=== PATIENT | female | born 1965 | race Caucasian/White ===

== ENCOUNTER 2020-09-22 10:25 | Outpatient (CLI) | payer BC, SELFPAY ==
--- NOTE | ~2020-09-22 | XR_ITS ---
XR hip BI 2V w AP pelvis DATE: 09/22/2020 11:29 INDICATION: Hip pain TECHNIQUE: AP pelvis. AP and lateral views of each hip. COMPARISON: 01/10/2016 bilateral hips FINDINGS: No pelvic fracture or bone destruction. The pubic symphysis and sacroiliac joints appear in tact. No fracture, dislocation, avascular necrosis or bone destruction of either hip. Hip joint spaces are symmetric and well preserved. IMPRESSION: No significant abnormality Reviewed, dictated and finalized at location A. RMATICIST IMPRESSION: No significant abnormality
--- NOTE | ~2020-09-22 | US_ITS ---
EXAMINATION: US transvaginal DATE: 09/22/2020 11:00 INDICATION: Thickened endometrial complex. TECHNIQUE: Multiple transvaginal sonographic images of the pelvis were obtained. COMPARISON: Ultrasound 06/09/2019 FINDINGS: The uterus measures 8.2 x 4.3 x 7.0 cm. There is a 3.1 cm isoechoic intramural fibroid. There is no f ree fluid in the pelvis. The endometrial complex measures 4 mm in thickness. There is trace fluid in the endometrial cavity. The ovaries are not visualized. IMPRESSION: 1. Normal endometrial complex. 2. Uterine fibroid. Reviewed, dictated and finalized at location B. TER ASSEMBLER
== END 2020-09-22 10:26 ==
PROVIDERS: PCP Family Medicine; Referring Provider Physician Assistant; Visit Provider Family Medicine
DX: R93.89 Abnormal findings on diagnostic imaging of other specified body structures (principal); M25.559 Pain in unspecified hip; M54.9 Dorsalgia, unspecified; G89.29 Other chronic pain; D25.9 Leiomyoma of uterus, unspecified
CPT/HCPCS: 73521; 76830

== ENCOUNTER → 2020-10-10 09:20 | Outpatient (CLI) | payer BC, SELFPAY ==
--- NOTE | ~2020-10-10 | MR_ITS ---
EXAMINATION: MR cervical spine wo con EXAM DATE: 10/10/2020 10:45 INDICATION: M54.9 - Dorsalgia, unspecified dorsalgia . TECHNIQUE: Multi-sequential, multiplanar MR images of the cervical spine were obtained without contra st. Axial T2, axial T2 MERGE sequence. Sagittal T1, T2, T2 fat saturation images also obtained. Com parison is made to prior examination from 11/28/2018. FINDINGS: There is moderate disc disease at C5-6, mild to moderate at C6-7. Mild disc disease at C4- 5 and 3-4. Mild chronic loss of the C5 and C6 vertebral body heights. The spinal cord signal intensit y and intrinsic morphology is normal. Cervicomedullary junction is normal in appearance. Paraspinal s oft tissue is unremarkable. Level by level evaluation: C2-C3: Disc does not extend beyond the endplate margin. Uncovertebral joint arthropathy: None. Facet joint arthropathy: Mild bilateral. Neural foraminal stenosis: No stenosis. Central canal stenosis: No stenosis. C3-C4: There is a minimal diffuse disc bulge. Uncovertebral joint arthropathy: Mild bilateral. Facet joint arthropathy: Mild to moderate left, mild right. Neural foraminal stenosis: No stenosis. Central canal stenosis: Minimal. C4-C5: There is a minimal diffuse disc bulge. Uncovertebral joint arthropathy: Mild bilateral. Facet joint arthropathy: Mild bilateral. Neural foraminal stenosis: Mild to moderate left. Central canal stenosis: Minimal. C5-C6: There is a mild diffuse disc bulge asymmetric to the right. Uncovertebral joint arthropathy: Moderate to severe right, mild to moderate left. Facet joint arthropathy: Moderate bilateral. Neural foraminal stenosis: Moderate to severe right, mild left. Central canal stenosis: Mild. C6-C7: There is a mild diffuse disc bulge. Uncovertebral joint arthropathy: Moderate to severe right, moderate left. Facet joint arthropathy: Moderate bilateral. Neural foraminal stenosis: Moderate to severe right, moderate left. Central canal stenosis: Mild. C7-T1: Disc does not extend beyond the endplate margin. Uncovertebral joint arthropathy: None. Facet joint arthropathy: Mild bilateral. Neural foraminal stenosis: No stenosis. Central canal stenosis: No stenosis. IMPRESSION: 1. Midcervical predominant neural foraminal stenosis. Reviewed, dictated and finalized at location B. L APPLIANCE ASSEMBLY SUPERVISOR
--- NOTE | ~2020-10-10 | MR_ITS ---
EXAMINATION: MR thoracic spine wo con EXAM DATE: 10/10/2020 11:00 INDICATION: M54.9 - Dorsalgia, unspecified dorsalgia. TECHNIQUE: Multi-sequential, multiplanar MR images of the thoracic spine were obtained without contra st. Sagittal T1, T2, T2 fat saturation, axial T2 weighted images reviewed. There is no prior study for comparison. FINDINGS: There is mild to moderate diffuse mid and lower thoracic loss of disc heights with small Sc hmorl's nodes at the endplates, small disc bulges and protrusions, but causing no more than mild cent ral canal or neural foraminal stenosis. There are no suspicious marrow signal abnormalities. The vert ebral bodies are aligned in the AP dimension. The spinal cord signal intensity and intrinsic morpholo gy is normal. Paraspinal soft tissue is unremarkable. There is mild to moderate thoracic facet arth ropathy. IMPRESSION: Mild to moderate thoracic spondylosis without significant stenosis. No acute findings. Reviewed, dictated and finalized at location B. SED OR BLOWN GLASS WORKER IMPRESSION: Mild to moderate thoracic spondylosis without significant stenosis . No acute findings.
--- NOTE | ~2020-10-10 | MR_ITS ---
EXAMINATION: MR lumbar spine wo [facility] EXAM DATE: 10/10/2020 10:58 INDICATION: M54.9 - Dorsalgia, unspecified dorsalgia . TECHNIQUE: Multi-sequential, multiplanar MR images of the lumbar spine were obtained without contrast . Sagittal T1, T2, T2 fat saturation images. Axial T2 weighted images. There is no prior study for comparison. FINDINGS: There is mild to moderate disc disease at T11-12 and T12-L1, mild from L3 through L5 and mo derate at L5-S1 with 3 mm retrolisthesis. There are no suspicious marrow signal abnormalities. The co nus medullaris terminates at the L1/2 level and has normal signal intensity and morphology. Paraspin al soft tissue is unremarkable. Level by level evaluation: T12-L1: There is a mild to moderate diffuse disc bulge. Facet arthropathy: Mild to moderate. Neural foraminal stenosis: No stenosis. Central canal stenosis: Mild. L1-L2: Disc does not extend beyond the endplate margin. Facet arthropathy: Mild to moderate. Neural foraminal stenosis: No stenosis. Central canal stenosis: No stenosis. L2-L3: There is a mild diffuse disc bulge. Facet arthropathy: Moderate. Neural foraminal stenosis: No stenosis. Central canal stenosis: Mild. L3-L4: There is a mild to moderate diffuse disc bulge. Facet arthropathy: Moderate. Neural foraminal stenosis: Mild to moderate left, mild right. Central canal stenosis: Mild. L4-L5: There is a mild to moderate diffuse disc bulge. Facet arthropathy: Mild to moderate. Neural foraminal stenosis: Mild to moderate bilateral. Central canal stenosis: Mild. L5-S1: There is a mild diffuse disc bulge. Facet arthropathy: Mild. Neural foraminal stenosis: Moderate bilateral. Central canal stenosis: Mild. IMPRESSION: Moderate spondylosis L5-S1, less at other lumbar levels. Reviewed, dictated and finalized at location B. TING PULLER
== END ==
PROVIDERS: PCP Family Medicine; Visit Provider Family Medicine
DX: M47.897 Other spondylosis, lumbosacral region (principal); M47.894 Other spondylosis, thoracic region
CPT/HCPCS: 72141; 72146; 72148

== ENCOUNTER 2021-01-13 14:33 | Outpatient (CLI) | payer BC, SELFPAY ==
--- NOTE | ~2021-01-13 | CT_ITS ---
EXAMINATION: CT abdomen pelvis wo con DATE: 01/13/2021 14:59 INDICATION: Right lower quadrant pain TECHNIQUE: Computed tomography (CT) of the abdomen and pelvis was performed without intravenous contr ast. The dose-length product was 232.73 mGy-cm. Automated exposure control and iterative reconstructi on technique were employed. COMPARISON: CT dated 08/07/2012. FINDINGS: Heart size normal. No pleural or pericardial effusion. Lung bases are unremarkable. Status post cholecystectomy. The liver, spleen, pancreas, adrenal glands and kidneys are unremarkable. Statu s post cholecystectomy. Small pericardial effusion. No free air. Mild lumbar spondylosis. The appendix is unremarkable measuring 5 mm axially. Nonobstructive bowel gas pattern. Status post ch olecystectomy. Nonobstructive bowel gas pattern. Moderate colonic fecal loading. Small amount of free fluid in the pelvis. IMPRESSION: 1. No acute abdominal abnormality. Reviewed, dictated and finalized at location B.
== END 2021-01-13 14:34 | disposition home or self-care (01) ==
LOC: ANHIMG 14:37
PROVIDERS: PCP Family Medicine; Visit Provider Family Medicine
DX: R10.31 Right lower quadrant pain (principal)
CPT/HCPCS: 74176

== ENCOUNTER 2021-09-21 14:06 | Outpatient (RCR) | payer BC, SELFPAY ==
[2021-09-21 14:09] VITALS: BP 138/74; PULSE 109; RESP 20; TEMP 36.6; O2SAT 100
--- NOTE | 2021-09-21 14:15 | PC.NURSE ---
Pt took Tylenol before coming to us for treatment. Tylenol has been held for that reason.
[2021-09-21] MEDS: FAMOTIDINE 20 MG TABLET PO (14:20)
[2021-09-21] MEDS: diphenhydrAMINE HCl CAP 25 MG CAPSULE PO (14:20)
[2021-09-21 15:45] VITALS: BP 114/70
--- NOTE | 2021-09-22 08:58 | PC.NURSE ---
Called Ms Tang and the Voicemail was full , I was unable to leave a message.
== END 2021-09-21 17:00 ==
LOC: AMCINF 14:06
PROVIDERS: PCP Family Medicine; Visit Provider Internal Medicine Hematology & Oncology
DX: U07.1 COVID-19 (principal); J44.9 Chronic obstructive pulmonary disease, unspecified
CPT/HCPCS: A9270; M0245; Q0245

== ENCOUNTER → 2022-04-19 14:05 | Outpatient (CLI) | payer BC, SELFPAY ==
--- NOTE | ~2022-04-19 | US_ITS ---
EXAMINATION: US pelvic complete w TV DATE: 04/19/2022 14:37 INDICATION: Uterine fibroids. Comparison:Ultrasound dated 09/22/2020 TECHNIQUE: Multiple transabdominal and endovaginal sonographic images of the pelvis performed. FINDINGS: The uterus measures 6.5 x 3.6 x 5.3 cm. There is a fibroid located at the fundus measuring 2.3 x 1.6 x 2.2 cm The endometrial complex measures 4 mm. The ovaries are not visualized. There is no free fluid in the pelvis. There are no abnormal masses seen on either side. IMPRESSION: 1. Uterine fibroid measuring 2.3 cm located at the fundus. 2: Borderline sized endometrium measuring 4 mm. Reviewed, dictated and finalized at location A.
== END ==
PROVIDERS: PCP Family Medicine; Visit Provider Family Medicine
DX: D25.9 Leiomyoma of uterus, unspecified (principal)
CPT/HCPCS: 76830; 76856

== ENCOUNTER → 2022-08-08 14:47 | Outpatient (CLI) | payer BC, SELFPAY ==
--- NOTE | ~2022-08-08 | XR_ITS ---
EXAMINATION: XR chest 2V 08/08/2022 14:57 INDICATION: Cough PROCEDURE: 2 view chest COMPARISON: No prior studies for comparison. FINDINGS: The lungs are clear. The cardiomediastinal silhouette is within normal limits. There are no pleural effusions. There is no pneumothorax suspected. IMPRESSION: 1: NO ACUTE CARDIOPULMONARY DISEASE. Reviewed, dictated and finalized at location B.
== END ==
PROVIDERS: PCP Physician Assistant; Visit Provider Physician Assistant
DX: R05.9 Cough, unspecified (principal)
CPT/HCPCS: 71046

== ENCOUNTER 2022-08-16 10:47 | Outpatient (NON) | payer BC, SELFPAY | END 2022-08-16 10:48 | disposition home or self-care (01) | LOC: ANHLAB 08-17 10:51 | PROVIDERS: PCP Physician Assistant; Visit Provider Nurse Practitioner | DX: D49.2 Neoplasm of unspecified behavior of bone, soft tissue, and skin (principal) | CPT/HCPCS: 88305; 88342 ==

== ENCOUNTER 2022-12-13 12:40 | Outpatient (CLI) | payer BC, SELFPAY ==
--- NOTE | 2022-12-18 00:13 | WPDPFTINT ---
PFT Procedure Performed PFT Procedure Performed Spirometry with Pre/Post Bronchodilator Plethysmography (Lung Vol) Diffusing Cap (DLCO) Flow Vol Loop PFT Interpretation DOS: 12/13/2022 REQUESTING: Seema Billy MD REASON FOR TESTING: cough PULMONARY FUNCTION TESTS Results are reliable and reproducible. Spirometry: pre bronchodilator FEV1 is 3.24 L, 119%, normal. Pre bronchodilator FVC is 4.12 L, 120%, normal. FEV1/ FVC is 79%, normal. After bronchodilator there is a 3% increase in the FEV1, no change in the FVC. This is not statistically significant. Lung volumes: Total lung capacity is 6.22 L, 120%, normal. Residual volume is 2.02 L, 104%, normal. RV/TLC is 32%, normal. Airway resistance is 1.30, 102%, normal. Diffusion: DLCO is 21.1, 94%, normal. DLCO/VA is 3.91, 87%, normal. Flow volume loop: Normal. IMPRESSION: Normal spirometry, normal lung volumes, normal diffusion. Renata Leblanc MD
== END 2022-12-13 12:41 | disposition home or self-care (01) ==
PROVIDERS: PCP Family Medicine; Visit Provider Family Medicine
DX: R05.8 Other specified cough (principal)
CPT/HCPCS: 94060; 94726; 94729

== ENCOUNTER 2024-01-21 16:24 | Outpatient (CLI) | payer BC, SELFPAY ==
--- NOTE | ~2024-01-21 | XR_ITS ---
XR shoulder RT min 2V 01/21/2024 16:34 Indication: Right shoulder pain for 3 months Procedure: 4 views right shoulder Comparison: No prior studies for comparison. Findings: No acute fracture, subluxation or dislocation. No soft tissue abnormality. No foreign luis m s. There is mild polyarticular osteoarthritis. Impression: 1: No acute bone or joint abnormality. 2: Mild polyarticular osteoarthritis. Reviewed, dictated and finalized at location A. Impression: 1: No acute bone or joint abnormality. 2: Mild polyarticular osteoarthritis.
== END 2024-01-21 16:25 ==
PROVIDERS: PCP Family Medicine; Visit Provider Family Medicine
DX: M19.011 Primary osteoarthritis, right shoulder (principal)
CPT/HCPCS: 73030

== ENCOUNTER 2024-05-04 12:33 | Outpatient (CLI) | payer BC, SELFPAY ==
[2024-05-04 14:45] LABS: Basophils Percent Auto 0.6 % (0.2-1.2); Eosinophils Absolute Auto 0.2 K/mm3 (0-0.3); Eosinophils Percent Auto 5.5 % (0-4.4); Hematocrit 39.7 % (37.0-47.0); Hemoglobin 12.8 g/dL (12.0-15.0); Immature Granulocyte Absolute 0.01 K/mm3 (0.00-0.031); Immature Granulocyte Percent A 0.3 % (0-0.5); Lymphocytes Absolute Auto 0.84 K/mm3 (0.9-3.2); Lymphocytes Percent Auto 23.1 % (18.3-44.2); Mean Corpuscular HGB Conc 32.2 g/dl (32-36); Mean Corpuscular Hemoglobin 31.8 pg (26-34); Mean Corpuscular Volume 98.8 fl (80-100); Mean Platelet Volume 9.1 fl (7.4-10.4); Monocytes Absolute Auto 0.3 K/mm3 (0.1-0.6); Monocytes Percent Auto 9.1 % (2.6-8.5); Neutrophils Absolute Auto 2.2 K/mm3 (1.3-6.7); Neutrophils Percent Auto 61.4 % (45.5-73.1); Platelet Count Result 181 k/mm3 (150-375); Red Blood Count 4.02 M/mm3 (4.2-5.4); White Blood Count 3.6 K/mm3 (4.5-10.0)
[2024-05-04 15:39] LABS: Hepatitis C Virus Antibody Negative (Negative)
[2024-05-04 15:42] LABS: Alanine Aminotransferase 23 U/L (6-35); Albumin Level 4.2 g/dL (3.5-5.1); Alkaline Phosphatase 71 U/L (38-126); Anion Gap 6 mmol/L (4-12); Aspartate Amino Transferase 37 U/L (14-36); Bilirubin,Total 1.5 mg/dL (0.2-1.3); Blood Urea Nitrogen 17 mg/dL (7-17); Calcium 9.2 mg/dL (8.4-10.2); Carbon Dioxide 30 mmol/L (22-30); Chloride 104 mmol/L (98-107); Cholesterol 208 mg/dL (0-200); Estimated Glomerular Filt Rate > 60; Glucose 91 mg/dL (65-110); HDL Direct 93 mg/dL; Potassium 4.6 mmol/L (3.4-5.0); Sodium 140 mmol/L (137-145); Triglycerides 45 mg/dL (<150)
[2024-05-04 15:53] LABS: LDL Cholesterol Direct 87 mg/dL
[2024-05-04 16:13] LABS: Thyroid Stimulating Hormone 0.496 uIU/mL (0.465-4.680)
== END 2024-05-04 12:34 | disposition home or self-care (01) ==
LOC: ANHGOSHLAB 12:36
PROVIDERS: PCP Family Medicine; Visit Provider Family Medicine
DX: Z00.00 Encounter for general adult medical examination without abnormal findings (principal); Z11.59 Encounter for screening for other viral diseases
CPT/HCPCS: 36415; 80053; 80061; 84443; 85025; 86803

== ENCOUNTER 2024-06-08 15:28 | Outpatient (CLI) | payer BC, SELFPAY ==
[2024-06-08 15:47] LABS: Basophils Percent Auto 0.3 % (0.2-1.2); Eosinophils Absolute Auto 0.1 K/mm3 (0-0.3); Eosinophils Percent Auto 3.8 % (0-4.4); Hematocrit 36.5 % (37.0-47.0); Hemoglobin 12.1 g/dL (12.0-15.0); Lymphocytes Absolute Auto 0.77 K/mm3 (0.9-3.2); Lymphocytes Percent Auto 20.9 % (18.3-44.2); Mean Corpuscular HGB Conc 33.2 g/dl (32-36); Mean Corpuscular Hemoglobin 31.8 pg (26-34); Mean Corpuscular Volume 96.1 fl (80-100); Mean Platelet Volume 8.5 fl (7.4-10.4); Monocytes Absolute Auto 0.3 K/mm3 (0.1-0.6); Monocytes Percent Auto 8.7 % (2.6-8.5); Neutrophils Absolute Auto 2.4 K/mm3 (1.3-6.7); Neutrophils Percent Auto 66.3 % (45.5-73.1); Platelet Count Result 194 k/mm3 (150-375); Red Cell Distribution Width 12.8 % (11.5-14.5); White Blood Count 3.7 K/mm3 (4.5-10.0)
[2024-06-08 16:27] LABS: Iron 61 ug/dL (37-170)
[2024-06-08 16:29] LABS: Alanine Aminotransferase 23 U/L (6-35); Albumin Level 4.4 g/dL (3.5-5.1); Alkaline Phosphatase 66 U/L (38-126); Anion Gap 9 mmol/L (4-12); Aspartate Amino Transferase 25 U/L (14-36); Bilirubin,Total 0.6 mg/dL (0.2-1.3); Blood Urea Nitrogen 14 mg/dL (7-17); Calcium 9.1 mg/dL (8.4-10.2); Carbon Dioxide 28 mmol/L (22-30); Chloride 103 mmol/L (98-107); Estimated Glomerular Filt Rate > 60; Glucose 95 mg/dL (65-110); Potassium 3.5 mmol/L (3.4-5.0); Sodium 140 mmol/L (137-145)
[2024-06-08 16:39] LABS: Percent Iron Saturation 19 % (20-50)
[2024-06-08 17:35] LABS: Folic Acid 11.8 ng/mL (2.76->20)
[2024-06-12 09:43] LABS: Methylmalonic Acid 81 nmol/L (55-335)
== END 2024-06-08 15:29 | disposition home or self-care (01) ==
LOC: ANHLAB 15:30
PROVIDERS: Nurse Practitioner Family; PCP Family Medicine; Visit Provider Internal Medicine Hematology & Oncology
DX: D72.819 Decreased white blood cell count, unspecified (principal); D50.9 Iron deficiency anemia, unspecified
CPT/HCPCS: 36415; 80053; 82607; 82728; 82746; 83540; 83550; 83921; 85025; 86038; 86039; 88184

== ENCOUNTER 2024-09-22 08:46 | Outpatient (CLI) | payer BC, SELFPAY ==
--- NOTE | ~2024-09-22 | US_ITS ---
Abdominal Sonogram: Real-time sonographic imaging of the abdomen was performed. Clinical History: Leukopenia Findings: The liver appears normal with no evidence of mass lesion or bile duct dilatation. Main por loreto vein demonstrates normal direction of flow. The spleen is normal in size without evidence of foca l lesion. The gallbladder is well distended, and appears normal with no evidence of gallstone or wal l thickening. The common bile duct measures 4 mm. The visualized pancreas, aorta, and IVC are unrema rkable. The right kidney measures 10.4 cm in length and the left kidney measures 10.9 cm. There is no hydronephrosis or renal calculus. Urinary bladder unremarkable. Impression: Unremarkable abdominal ultrasound. Reviewed, dictated and finalized at location M. GRATION JUDGE Impression: Unremarkable abdominal ultrasound.
== END 2024-09-22 08:47 | disposition home or self-care (01) ==
PROVIDERS: PCP Family Medicine; Visit Provider Internal Medicine Hematology & Oncology
DX: D72.819 Decreased white blood cell count, unspecified (principal)
CPT/HCPCS: 36415; 76700; 85025

== ENCOUNTER 2024-09-22 10:09 | Outpatient (CLI) | payer BC, SELFPAY ==
[2024-09-22 10:23] LABS: Basophils Percent Auto 0.5 % (0.2-1.2); Eosinophils Absolute Auto 0.1 K/mm3 (0-0.3); Eosinophils Percent Auto 2.8 % (0-4.4); Hematocrit 41.9 % (37.0-47.0); Hemoglobin 13.8 g/dL (12.0-15.0); Immature Granulocyte Absolute 0.01 K/mm3 (0.00-0.031); Immature Granulocyte Percent A 0.2 % (0-0.5); Lymphocytes Absolute Auto 1.09 K/mm3 (0.9-3.2); Lymphocytes Percent Auto 25.8 % (18.3-44.2); Mean Corpuscular HGB Conc 32.9 g/dl (32-36); Mean Corpuscular Hemoglobin 32.3 pg (26-34); Mean Corpuscular Volume 98.1 fl (80-100); Mean Platelet Volume 8.4 fl (7.4-10.4); Monocytes Absolute Auto 0.4 K/mm3 (0.1-0.6); Monocytes Percent Auto 9.7 % (2.6-8.5); Neutrophils Absolute Auto 2.6 K/mm3 (1.3-6.7); Platelet Count Result 213 k/mm3 (150-375); Red Blood Count 4.27 M/mm3 (4.2-5.4); Red Cell Distribution Width 12.3 % (11.5-14.5); White Blood Count 4.2 K/mm3 (4.5-10.0)
== END 2024-09-22 10:10 | disposition home or self-care (01) ==
LOC: ANHLAB 10:10
PROVIDERS: PCP Family Medicine; Visit Provider Internal Medicine Hematology & Oncology
DX: D72.819 Decreased white blood cell count, unspecified (principal)
CPT/HCPCS: 36415; 85025

== ENCOUNTER 2024-10-02 16:11 | Outpatient (CLI) | payer BC, SELFPAY ==
--- NOTE | ~2024-10-02 | XR_ITS ---
XR knee LT min 4V 10/02/2024 16:33 Indication: Left knee pain Procedure: 4 views left knee Comparison: 01/14/2012 Findings: There is anatomic alignment. No fracture, subluxation or dislocation. No significant joint effusion. Impression: 1: No acute bone or joint abnormality. Reviewed, dictated and finalized at location B. IST CAMP ATTENDANT Impression: 1: No acute bone or joint abnormality.
== END 2024-10-02 16:12 | disposition home or self-care (01) ==
LOC: MICIMG 16:13
PROVIDERS: PCP Family Medicine; Visit Provider Nurse Practitioner Family
DX: M17.12 Unilateral primary osteoarthritis, left knee (principal)
CPT/HCPCS: 73564

== ENCOUNTER 2024-10-02 16:16 | Outpatient (CLI) | payer BC, SELFPAY ==
--- NOTE | ~2024-10-02 | XR_ITS ---
EXAMINATION: XR wrist LT 2V DATE: 10/02/2024 16:33 INDICATION: Left wrist pain. TECHNIQUE: 2 views of left wrist were obtained. COMPARISON: None. FINDINGS: Alignment is normal. No fracture. There is mild osteoarthritis of first carpometacarpal sweetie nt. IMPRESSION: 1. Mild osteoarthritis of first carpometacarpal joint. Reviewed, dictated and finalized at location A. ON KEEPER
== END 2024-10-02 16:17 | disposition home or self-care (01) ==
LOC: MICIMG 16:16
PROVIDERS: PCP Family Medicine; Visit Provider Student in an Organized Health Care Education/Training Program
DX: M19.032 Primary osteoarthritis, left wrist (principal)
CPT/HCPCS: 73100

== ENCOUNTER 2025-03-29 10:43 | Outpatient (CLI) | payer BC, SELFPAY ==
[2025-03-29 11:00] LABS: Basophils Percent Auto 0.2 % (0.2-1.2); Eosinophils Absolute Auto 0.1 K/mm3 (0-0.3); Eosinophils Percent Auto 1.4 % (0-4.4); Hematocrit 43.5 % (37.0-47.0); Hemoglobin 14.5 g/dL (12.0-15.0); Immature Granulocyte Absolute 0.02 K/mm3 (0.00-0.031); Immature Granulocyte Percent A 0.5 % (0-0.5); Lymphocytes Absolute Auto 0.71 K/mm3 (0.9-3.2); Lymphocytes Percent Auto 16.1 % (18.3-44.2); Mean Corpuscular HGB Conc 33.3 g/dl (32-36); Mean Corpuscular Hemoglobin 31.7 pg (26-34); Mean Platelet Volume 8.6 fl (7.4-10.4); Monocytes Absolute Auto 0.3 K/mm3 (0.1-0.6); Monocytes Percent Auto 6.3 % (2.6-8.5); Neutrophils Absolute Auto 3.3 K/mm3 (1.3-6.7); Neutrophils Percent Auto 75.5 % (45.5-73.1); Platelet Count Result 210 k/mm3 (150-375); Red Blood Count 4.58 M/mm3 (4.2-5.4); Red Cell Distribution Width 12.5 % (11.5-14.5); White Blood Count 4.4 K/mm3 (4.5-10.0)
[2025-03-29 11:06] LABS: Blood Urea Nitrogen 21 mg/dL (8-26); Carbon Dioxide 23 mmol/L (22-30); Chloride 103 mmol/L (98-109); Estimated Glomerular Filt Rate > 60; Glucose 96 mg/dL (70-105); Ionized Calcium (POC) 1.21 mmol/L (1.11-1.31); Potassium 4.2 mmol/L (3.5-4.9); Sodium 138 mmol/L (138-146)
--- OUTSIDE RECORDS SUMMARY | 2025-03-29 11:43 | XMS_ITS | Encounter Summary ---
Author Organization [facility] Address [address] [place] [address] Care Team Providers Care Buckle Sewer Machine Name Role Phone Seema Billy MD Primary Care Provider [phone] Encounter Details Date Type Department Care Team (Late st Contact Info) Description 03/29/2025 11:30 AM CDT Office Visit [facility] [place] [address] [place] [address] Carlos Dowling MD [address] [facility] [place] [address] Leukopenia, unspecified type (Primary Dx) Social History Tobacco Use Types Packs/Day Years Used Date Smoking Tobacco: Never Tobacco Cessation:Counseling Given: Not Answered Alcohol Use Standard Drinks/Week Comments Not Currently 0 (1 standard drink = 0.6 oz pur e alcohol) Feeling Safe Answer Date Recorded Are you in a relationship wi th someone who hurts you emotionally and/or physically? No 09/17/2023 Comments Unknown Sex and Gender Information Value Date Recorded Sex Assigned at Not on file Legal Sex Female 2:08 PM VP CONSTRUCTION Gender Identity Not on file Sexual Orientation Not on file documented as of this encounter Last Filed Vital Signs Vital Sign Reading Time Taken Comments Blood Pressure 127/82 03/29/2025 11:29 AM CDT Pulse 123 03/29/2025 11:29 AM CDT Temperature 36.2 C (97.1 F) 03/29/2025 11:29 AM CDT Respiratory Rate 15 03/29/2025 11:29 AM CDT Oxygen Saturation 97% 03/29/2025 11:29 AM CDT Inhaled Oxygen Concentration - - Weight 67 kg (147 lb 12.8 oz) 03/29/2025 11:29 A M CDT Height - - Body Mass Index 24.6 06/08/2024 2:30 PM CDT documented in this encounter Plan of Treatment Scheduled Orders Name Type Priority Associated Diagnoses Orde r Schedule CBC WITH DIFFERENTIAL Lab Stat Leukopenia, unspecified type Expected: 03/29/2026, Expires: 03/29/2026 BASIC METABOLIC PANEL Lab Stat Leukopenia, unspecified type Expected: 03/29/2026, Expires: 03/29/2026 documented as of this encounter Visit Diagnoses Diagnosis Leukopenia, unspecified type- Primary documented in this encounter Care Teams Buckle Sewer Machine Relationship Specialty Start Date End Date Seema Billy MD [facility] [address] [address] PCP - General Family Practice 09/04/23 documented as of this encounter
--- OUTSIDE RECORDS SUMMARY | 2025-03-29 11:43 | XMS_ITS | Referral Summary ---
Author Organization [facility] Address [address] [place] [address] Care Team Providers Care Skilled Nursing Professional Name Role Phone Seema Billy MD Primary Care Provider + Allergies Active Allergy Reactions Criticality Noted Date Comments Hydrocodone-Acetaminophen Medications gabapentin (NEURONTIN) 300 mg capsule Take 1 capsule (300 mg total) by mouth 3 (three) times a day 90 capsule 4 05/27/20 25 Active methocarbamoL (ROBAXIN) 500 mg tablet Take 1 tablet (500 mg total) by mouth 2 (two) times a day 20 tablet 4 Active lidocaine (LIDODERM) 5 % Apply 1 patch topically daily Remove after 12 hours (need 12 hour patch free period). 10 patch 4 Active Active Problems Problem Noted Date Diagnosed Date Disorder of pelvis 03/19/2016 Tear of acetabular labrum 02/27/2016 Arthralgia of hip 02/10/2016 Pain in shoulder 08/10/2014 Social History Tobacco Use Types Packs/Day Years Used Date Smoking Tobacco: Never Smokeless Tobacco: Never Tobacco Cessation:Counseling Given: Not Answered Personal Safety Answer Date Recorded Have you ever been in or are you currently in a harmful physical or emotional relationship or is someone making you feel afraid or unsafe? 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 Gender Identity Not on file Sexual Orientation Not on file Last Filed Vital Signs Vital Sign Reading Time Taken Comments Blood Pressure 122/68 05/27/2024 11:40 AM CDT Pulse 77 05/27/2024 11:40 AM CDT Temperature 36.8 C (98.2 F) 05/26/2024 7:07 PM CDT Respiratory Rate 17 05/27/2024 11:40 AM CDT Oxygen Saturation 100% 05/27/2024 11:40 AM CDT Inhaled Oxygen Concentration - - Weight 68 kg (150 lb) 05/27/2024 5:03 AM CDT Height 165.1 cm (5' 5) 05/27/2024 5:03 AM CDT Body Mass Index 24.96 05/27/2024 5:03 AM CDT Plan of Treatment Not on file Insurance [facility] FEDERAL [facility] FEDERAL Care Teams Skilled Nursing Professional Relationship Specialty Start Date End Date Semea Billy MD [facility] [address] [address] PCP - General Family Medicine 05/27/24
--- OUTSIDE RECORDS SUMMARY | 2025-03-29 11:43 | XMS_ITS | Clinical Summary ---
Author Organization [facility] Address [address] [place] [address] Care Team Providers Care Military Professional Name Role Phone Seema Billy MD [...] of hip 02/10/2016 Pain in shoulder 08/10/2014 Surgical History Surgery Date Site/Laterality Comments CHOLECYSTECTOMY 07/2012 Medical History Medical History Date Comments Allergy status to unspecifie d drugs, medicaments and biological substances status History of seasonal allergie s - (Added by TW Conv) Family History Medical History Relation Name Comments Arthritis Father Family history of arthritis - (Added by TW Conv) Hearing loss Father Hypertension Father Family history of hypertension - (Added by TW Conv) Arthritis Mother Family history of arthritis - (Added by TW Conv) Hearing loss Mother Vision loss Mother Relation Name Status Comments Father Mother Alive Social History Tobacco Use Types Packs/Day Years [...] on file 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 Gender Identity Not on file Sexual Orientation Not on file Obstetrics History Last Filed Vital Signs Vital Sign Reading [...] 05/27/2024 5:03 AM CDT Plan of Treatment Health Maintenance Due Date Last Done Comments Cervical Cancer Screening 1967 Colon Cancer Screening-Colonoscopy 1967 Depression Screening 1967 Hepatitis C Screening 1967 DTaP/Tdap/Td Vaccine (1 - Tdap) 1978 Hepatitis B Screening 1985 Regular Well Visit/Exam 18-64 1985 Zoster Vaccine (1 of 2) 2017 Breast Cancer Screening-Mammogram 01/11/2024 01/10/2023, 01/10/2023 Influenza Vaccine (Season Ended) 2025 Pneumococcal vaccine <65 Aged Out No longer eligible based on patient's age to complete this topic Insurance BS [employer] [facility] FEDERAL Care Teams Military Professional Relationship Specialty Start Date End Date Seema Billy MD [address] [place] [address] [address] GR[address] [place] [address] [place] [address] PCP - General Family Medicine 05/27/24
--- OUTSIDE RECORDS SUMMARY | 2025-03-29 11:43 | XMS_ITS | Clinical Summary ---
Author Organization [facility] Address [address] [facility] [place] [address] Care Team Providers Care Venetian Blind Cleaner Name Role Phone Vignesh Poon MD Primary Care Provider [phone] Source Comments [facility],non-owned Affiliates and Associated Physician Practices is amultiple site organization consisting of ambulatory clinics and hospital sitesin [place], [place], [place] and [place]. This disclosure is being madepursuant to the Care Everywhere program and may not contain all information available regarding this patient. Last updated [email or web address] Allergies No known active allergies Medications * Be aware that medications may not be up to date on this document. Alwaysverify current medications with the patient. aspirin-acetami nophen-caffeine 250-250-65 MG tablet Take 1 (one) tablet by mouth every 4 hours as needed Active gabapentin (Neurontin) 300 MG capsule Take 1 (one) capsule by mouth 3 times daily 4 05/27/20 25 Active methocarbamol (Robaxin) 500 MG tablet Take 1 (one) tablet by mouth 2 times daily 4 Active diclofenac sodium EC (Voltaren) 75 MG tablet Take 1 (one) tablet by mouth 2 times daily 3 Active oxyCODONE-aceta minophen (Percocet) 5-325 MG tablet Take 1 (one) tablet by mouth every 4 hours as needed Active montelukast (Singulair) 10 MG tablet Take 1 (one) tablet by mouth 4 Active lidocaine (Lidoderm) 5 % patch APPLY 3 PATCHES TOPICALLY DAILY. 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 Gender Identity Not on file Sexual Orientation Not on file Last Filed Vital Signs Vital Sign Reading Time Taken Comments Blood Pressure - - Pulse - - Temperature - - Respiratory Rate - - Oxygen Saturation - - Inhaled Oxygen Concentration - - Weight 69.9 kg (154 lb) 06/18/2024 9:04 AM CDT Height 166.4 cm (5' 5.5) 06/18/2024 9:04 AM CDT Body Mass Index 25.24 06/18/2024 9:04 AM CDT Plan of Treatment Health Maintenance Due Date Last Done Comments COLOGUARD (AGES 45-75) - COL ON CA SCREENING 1967 COLON MONITORING 1967 COLONOSCOPY - COLON CA SCREENING 1967 CT COLONOGRAPHY - COLON CA SCREENING 1967 Colorectal Cancer Screening 1967 FIT - COLON CA SCREENING 1967 FLEX SIG - COLON CA SCREENING 1967 LIPID TESTING 1967 PAP SMEAR 1967 HIV SCREENING 1982 HEPATITIS C SCREENING 01/13/1985 DTAP/TDAP/TD VACCINES (1 - Tdap) 1986 HEPATITIS B VACCINE (1 of 3 - 19+ 3-dose series) 1986 PNEUMOCOCCAL VACCINE 50+ (1 of 1 - PCV) 2017 ZOSTER VACCINE (1 of 2) 2017 COVID-19 VACCINE ( - 2023-2 5 season) 2024 SCREENING FOR DIABETES 06/18/2024 DEPRESSION SCREENING 10/14/2024 MAMMOGRAM 01/10/2025 01/10/2023, 01/10/2023 INFLUENZA VACCINE (Season Ended) 2025 HIB VACCINE Aged Out No longer eligi ble based on patient's age to complete this topic HPV VACCINE Aged Out No longer eligi ble based on patient's age to complete this topic MENINGOCOCCAL (Group B) VACCINE SHARED DECISION-MAKING Aged Out No longer eligible based on patient's age to complete this topic MENINGOCOCCAL GROUPS A/C/Y/W VACCINE Aged Out No longer eligible b ased on patient's age to complete this topic Insurance [employer] SELF PAY NO INSURANCE Member Subscriber Plan / Payer (Ef fective for All Dates) Name:Kylah Myers Member ID:Not on file Relation to Subscriber:Not on file Name:KYLAH MYERS Subscriber ID:Not on file Address: [address] [place] [id number] Payer ID:Not on file Group ID:Not on file Type:Self Pay Address: [place], [place] Care Teams Venetian Blind Cleaner Relationship Specialty Start Date End Date Vignesh Poon MD [address] [place] [id number] PCP - General 08/20/22
--- OUTSIDE RECORDS SUMMARY | 2025-03-29 11:44 | XMS_ITS | Continuity of Care Document ---
Author Organization [facility] Address [address] [place] [address] utive [facility] [address] [place] [address] Phone Care Team Providers Care Trading Floor Operator Name Role Phone [facility] Unavailable Unavail able Procedures Procedure Date No Charge [employer] Advance Directives Directive Yes / No Effective Date File Name No Information Encounters Encounter Description Practice Location Reason(s) For Visit Diagnoses Date Provider Providers Copied on Encounter [facility], [address] [place] [address] [address], [place], [place], [id number], [place] tel:[phone] SEC [facility] No Information [facility] [address], [place], [id number] , [place]. tel: [phone] Family History Family Member Type Diagnosis Age At Onset No Information Payers Payer name Insurance type Covered democrat ID Authoriza tion(s) No Information Social History Type Description Quantity Date Captured Comments Sex Female Smoking Status No Information Chief Complaint And Reason For Visit No Information Reason For Referral Reason For Referral No Information History Of Present Illness Encounter Date Complaint History Of Prese nt Illness No Information Functional Status Date Functional Assessmen t No Information Instructions Date Instruction Additional Infor mation No Information Assessments Type Assessment Date No Information Patient Care Teams Name Effective Dates (start - stop) Status Members No Information
--- OUTSIDE RECORDS SUMMARY | 2025-03-29 11:44 | XMS_ITS | Clinical Summary ---
Author Organization [facility] [id number] [facility] Address [address] [place] [address] Care Team Providers Care Food And Nutrition Teacher Name Role Phone Seema Billy MD Primary Care Provider Allergies Active Allergy Reactions Criticality Noted Date Comments Hydrocodone-Acetaminophen Nausea and Vomiting Low 0 06/08/2024 Medications diclofenac sodium (VOLTAREN) 75 mg Tablet, Delayed Release (E.C.) TK 1 T PO BID 1 12/30/2018 Active amphetamine-dext roamphetamine (ADDERALL XR) 20 mg Extended Release 24 hour capsule Take 20 mg by mouth daily in the morning. Active gabapentin (NEURONTIN) 300 mg capsule Take 300 mg by mouth 3 times daily. 05/27/2024 5 Active oxyCODONE-acetam inophen (PERCOCET) 5-325 mg tablet Take 1 Tablet by mouth every 4 hours as needed for Pain, Moderate. Active methocarbamoL (ROBAXIN) 500 mg tablet Take 500 mg by mouth 2 times daily. Active aspirin-acetamin ophen-caffeine (EXCEDRIN EXTRA STRENGTH) 250-250-65 mg Tablet Take by mouth every 4 hours as needed for Headaches. Active acetaminophen (TYLENOL) 325 mg tablet Take 325 mg by mouth. Active Active Problems Problem Noted Date Diagnosed Date DDD (degenerative disc disease), lumbar 10/25/19 21 DDD (degenerative disc disease), thoracic 2020 Thoracic outlet syndrome 10/25/2020 Cervical disc disease 01/08/2019 Encounters Date Type Department Care Team Description 03/29/2025 11:30 AM CDT Office Visit [facility] Oncology and Hematology - [place] [address] [address] [place] [phone] Carlos Dowling MD Leukopenia, unspecified type (Primary Dx) 03/09/2025 External Device Data [facility] ABSTRACTION Provider, Abstract 03/03/2025 External Device Data [facility] ABSTRACTION Provider, Abstract 03/02/2025 External Device Data [facility] ABSTRACTION Provider, Abstract 02/16/2025 External Device Data [facility] ABSTRACTION Provider, Abstract 12/30/2024 External Device Data [facility] ABSTRACTION Provider, Abstract from Last 3 Months Family History Medical History Relation Name Comments Cancer Brother 1 Lester Herrera all over body, a week ago. thinking lung primary. Diabetes Brother 1 Lester Herrera Stroke Brother 1 Lester Herrera Heart Disease Brother 2 Andrés Herrera Neck & back palomino rgeries No Known Problems Brother 3 Ulcerative Colitis Child 1 No Known Problems Child 2 No Known Problems Child 3 Rheumatoid Arthritis Father Maksim Herrera back palomino rgery, hip replacement Arthritis Mother Catherine Herrera back surgery Other Sister Chemical burn t o lungs Relation Name Status Comments Brother 1 Lester Herrera Brother 2 Andrés Herrera Brother 3 Alive Child 1 Alive Child 2 Alive Child 3 Alive Father Maksim Herrera Mother Catherine Herrera Alive Sister Social History Tobacco Use Types Packs/Day Years [...] on file Legal Sex Female 2:08 PM [employer] Gender Identity Not on file Sexual Orientation [...] oz) 03/29/2025 11:29 A M CDT Height 165.1 cm (5' 5) 06/08/2024 2:30 PM CDT Body Mass Index 24.6 06/08/2024 2:30 PM CDT Plan of Treatment Health Maintenance Due Date Last Done Comments Pre-Diabetes and Diabetes Screening 1965 DTAP/TDAP/TD VACCINES (1 - Tdap) 1986 HEPATITIS B VACCINES (1 of 3 - 19+ 3-dose series) 1986 HPV/Cotest (21-29) 01/19/1988 CERVICAL CANCER SCREENING 1997 HPV/Cotest (30-65) 1997 PAP SMEAR 1997 FIT-DNA Q 3 years 01/19/2012 FIT/FOBT Q 1 year 01/19/2012 Flex Sig/CT Colonography Q 5 years 01/19/2012 ZOSTER VACCINE (1 of 2) 2017 BREAST CANCER SCREENING 01/11/2024 01/10/2023, 01/10 INFLUENZA VACCINE (#1) 2024 Preventative Visit- Commercial 10/14/2024 COLORECTAL SCREENING 09/17/2033 09/17/2023, 09/17/20 23 Colorectal Cancer Screening 09/17/2033 Procedures Procedure Name Priority Date/Time Associated Diagnosis Comments COLONOSCOPY REPORT 09/17/2023 9: 03 AM [employer] WORK[employer] from Last 3 Months or Most Recently Relevant to Health Maintenance Results * COLONOSCOPY REPORT (09/17/2023 9:03 AM [employer] WORK[employer]) Narrative Procedure Note Olayinka Riddle MD - 09/17/2023 9:02 AM CST [facility] Endoscopy Patient Name: Kylah Myers Procedure Date: 09/17/2023 Date of : 1965 Attending MD: Olayinka Riddle MD, Procedure: Colonoscopy Indications: Screening for colorectal malignant neoplasm, This is the patient's first colonoscopy Providers: Olayinka Riddle MD Referring MD: Seema Billy MD Medicines: Monitored Anesthesia Care Complications: No immediate complications. Procedure: Informed consent was obtained for the procedure, including moderate sedation after risks were discussed. Based on the pre-procedure assessment, including review of the patient's medical history, medications, allergies, and review of systems, the patient was deemed to be an appropriate candidate for sedation. A timeout was performed. Continuous ECG monitoring, pulse oximetry, blood pressure monitoring, and direct observation were performed. The Colonoscope was introduced through the anus and advanced to the cecum, identified by appendiceal orifice and ileocecal valve. The colonoscopy was performed without difficulty. The patient tolerated the procedure well. The quality of the bowel preparation was excellent. The ileocecal valve, appendiceal orifice, and rectum were photographed. Estimated Blood Loss: Estimated blood loss: none. Findings: Hemorrhoids were found on perianal exam. A single small-mouthed diverticulum was found in the right colon. Internal hemorrhoids were found during retroflexion. The hemorrhoids were small. The exam was otherwise without abnormality. Impression: - Hemorrhoids found on perianal exam. - Diverticulosis in the right colon. - Internal hemorrhoids. - The examination was otherwise normal. - No specimens collected. Recommendation: - Repeat colonoscopy in 10 years for screening purposes. Olayinka Riddle MD 09/17/2023 9:02:45 AM This report has been signed electronically. Number of Addenda: [phone] ; [place] [address] Olayinka Riddle MD GI PROCEDURE ORDERABL ES Final Result from Last 3 Months or Most Recently Relevant to Health Maintenance Insurance [facility] [employer] Advance Directives For more information, please contact: [phone] * Full Code (Latest Code Status on File) Date Activated Date Inactivated Comments 09/17/2023 8:06 AM 09/17/2023 11:52 AM Care Teams Food And Nutrition Teacher Relationship Specialty Start Date End Date Seema Billy MD [id number] Formerly N[facility] [address] [phone] PCP - General Family Practice 09/04/23
[2025-03-29 11:59] LABS: Anion Gap 11 mmol/L (4-12); Blood Urea Nitrogen 21 mg/dL (7-17); Calcium 9.9 mg/dL (8.4-10.2); Carbon Dioxide 24 mmol/L (22-30); Chloride 103 mmol/L (98-107); Estimated Glomerular Filt Rate > 60; Glucose 96 mg/dL (65-110); Potassium 4.3 mmol/L (3.4-5.0); Sodium 138 mmol/L (137-145)
== END 2025-03-29 10:44 | disposition home or self-care (01) ==
LOC: ANHLAB 10:44
PROVIDERS: PCP Family Medicine; Visit Provider Internal Medicine Hematology & Oncology
DX: D72.819 Decreased white blood cell count, unspecified (principal)
CPT/HCPCS: 36415; 80047; 80048; 85025